=== PATIENT | female | born 1990 | race Caucasian/White ===

== ENCOUNTER 2019-02-12 12:08 | Emergency (ER) | payer OTHER ==
[~2019-02-12] VITALS: Wt 59.0 kg
[2019-02-12] MEDS ORDERED: KETOROLAC 60 MG INJ IM STA (12:22)
[2019-02-12] MEDS ORDERED: IBUP800T48 PO (12:29)
--- NOTE | 2019-02-12 12:34 | ERD ---
ER Documentation Chief Complaint Chief Complaint LEFT KNEE PAIN AND SWELLING WITH NO DEFORMITY ONSET YESTERDAY. HPI This is a 28-year-old female with a nonsignificant past medical history presents ED with left knee pain since yesterday. 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 Patient states that she heard a pop and then she started to feel pain. Patient admits to some difficulty ambulating but states that she is ambulating okay. Denies tingling, numbness, lack sensation, swelling and all other symptoms. ROS All systems reviewed and are negative except as per history of present illness. Medications Home Meds Active Scripts Ibuprofen* (Motrin*) 800 Mg Tab, 800 MG PO Q6, #30 TAB Prov:RADHA GAYTAN PA-C 02/12/19 PMhx/Soc Medical and Surgical Hx: pt denies Medical Hx, pt denies Surgical Hx Hx Alcohol Use: No Hx Substance Use: No Hx Tobacco Use: No Smoking Status: Never smoker FmHx Family History: No diabetes Physical Exam Vitals Vital Signs Date Temp Pulse Resp B/P (MAP) Pulse Ox O2 O2 Flow FiO2 Time Delivery Rate 02/12/19 98.5 86 20 129/82 99 12:11 (98) Physical Exam Physical Exam Vitals signs: Reviewed by me. General: Well developed, well nourished, in no acute distress. Patient is awake and alert. Head: Normocephalic, atraumatic. Eyes: Normal conjunctiva, Pupils PERRLA, EOM intact grossly MSK: No edema, no unilateral swelling, 5/5 strength Lower Extremity -left Skin: No laceration, swelling or evidence of external trauma Compartments: Soft Motor: Full active range of motion hip/knee/ankle/foot Sensation: Intact to light touch FDWS/MF/LF/P surfaces. Bones: Mild tenderness palpation along left lateral knee, nontender pelvis//proximal tibia/ malleoli/foot Joints: No effusion or laxity Pulses/Perfusion: 2+ DP, Capillary refill < 2 seconds Neurologic: Alert and oriented, moving all extremities, normal speech, no focal weakness, no cerebellar signs. Normal mentation Skin: warm and dry, No rash Psych: Normal mood Results 24 hrs Laboratory Tests Test 02/12/19 12:56 POC Beta HCG, Qualitative NEGATIVE Current Medications Medications Dose Sig/Jovi Start Time Status Last (Trade) Ordered Route PRN Stop Time Admin Dose Reason Admin Ketorolac 60 mg ONCE STAT 02/12/19 DC 02/12/19 Tromethamine IM 12:22 13:04 (Toradol) 02/12/19 12:24 17 gm ONCE ONCE 02/12/19 DC Polyethylene PO 13:30 Glycol 02/12/19 13:32 (Miralax) Procedures/MDM EKG, MONITORS, & DIAGNOSTIC IMAGING: [place] [id number] Radiology Main Line: [phone] DIAGNOSTIC IMAGING REPORT Patient: DARWIN GREGORY : 1990 Age: 28 Sex: F MR #: [id number] DOS: 02/12/19 1222 Ordering MD: RADHA GAYTAN PA-C Location: [facility] Room/Bed: PROCEDURE: XR Knee. CLINICAL INDICATION: Left knee pain TECHNIQUE: 4 images of the left knee are available for review. COMPARISON: None available FINDINGS: There is no acute fracture. Alignment is normal. Joint spaces are preserved. There is a small knee joint effusion. IMPRESSION: 1. No radiographic evidence of acute osseous abnormality. 2. Small knee joint effusion. RPTAT: UU .Chapin King MD, MD Date Time Electronically viewed and signed by .Chapin King MD, on 02/12/2019 13:37 .K/ CC: RADHA GAYTAN PA-C [phone] ER COURSE: The patient was given Toradol The medication was well tolerated and the patient reports improvement in symptoms. The patient was stable throughout ED course. I kept the patient and/or family informed of laboratory and diagnostic imaging results throughout the emergency room course. The patient was promptly evaluated and a treatment plan was devised based on H&P and other data. This plan was discussed with the patient who agreed and had no further questions or concerns prior to discharge. MEDICAL DECISION MAKIN-year-old female presents ED with left knee injury that occurred yesterday. X-rays show a small joint knee effusion but are otherwise unremarkable. I believe that this is likely a sprain. Patient was given crutches to aid with ambulation. Patient was advised to rice and she was also advised to follow-up with physician specialist to discuss possible advanced imaging such as MRI to rule out any ligamental injuries. History and physical examination other data not consistent with emergent processes including but not limited to fracture, dislocation, tendon rupture, ischemia, neurovascular injury, compartment syndrome, septic joint, avascular necrosis, osteomyelitis, necrotizing fasciitis, septic joint, septic arthritis, or other emergent conditions. Patient's vitals are stable and can be managed outpatient with close follow-up. Advised patient to follow-up with primary care in the next 48 hours. Return to ED with any worsening symptoms. DISPOSITION PLAN: We discussed follow up with the patient's primary care doctor within 24 to 48 hours. Patient counseled regarding my diagnostic impression and care plan. Prior to discharge all questions answered. Pt agrees with treatment plan and understands strict return precautions. Precautionary instructions provided including instructions to return to the ER if not improving or for any worsening or changing symptoms or concerns. SPECIALIST FOLLOW UP RECOMMENDED: ortho Patient has been advised to follow up with primary care in 1-2 days. Disclaimer: Inadvertent spelling and grammatical errors are likely due to EHR/dictation software use and do not reflect on the overall quality of patient care. Also, please note that the electronic time recorded on this note does not necessarily reflect the actual time of the patient encounter. Blood Pressure Assessment: Patient's blood pressure was elevated (>120/80) but appears stable without evidence of hypertension emergency or urgency. The patient was counseled about the risks of hypertension and urged to pursue outpatient monitoring and therapy within a week with their primary care hans luevano. Departure Diagnosis: Primary Impression: Knee pain Chronicity: acute Laterality: left Qualified Codes: M25.562 - Pain in left knee Additional Impression: Knee effusion, left Condition: Stable Patient Instructions: R.I.C.E., Knee Pain, Uncertain Cause, Knee Sprain Referrals: ANDREW RODRIGUEZ MD [facility] YOU HAVE RECEIVED A MEDICAL SCREENING EXAM AND THE RESULTS INDICATE THAT YOU DO NOT HAVE A CONDITION THAT REQUIRES URGENT TREATMENT IN THE EMERGENCY DEPARTMENT. FURTHER EVALUATION AND TREATMENT OF YOUR CONDITION CAN WAIT UNTIL YOU ARE SEEN IN YOUR DOCTORS OFFICE WITHIN THE NEXT 1-2 DAYS. IT IS YOUR RESPONSIBILITY TO MAKE AN APPOINTMENT FOR FOLOW-UP CARE. IF YOU HAVE A PRIMARY DOCTOR --you should call your primary doctor and schedule an appointment IF YOU DO NOT HAVE A PRIMARY DOCTOR YOU CAN CALL OUR PHYSICIAN REFERRAL HOTLINE AT IF YOU CAN NOT AFFORD TO SEE A PHYSICIAN YOU CAN CHOSE FROM THE FOLLOWING [facility] [address] [facility] [address] [facility] [address] [facility] [address] [facility] [address] [facility]. [facility] [address] Additional Instructions: Patient advised to return to the ED immediately for new or worsening symptoms. Patient advised to follow up with primary care provider in the next 24-48 hours. Patient verbalized understanding and agrees with treatment plan and course of action. If patient has no primary care they may follow up with one of the [facility] listed on the following page or one of the options listed below [facility] [address] [place] [id number] or [facility] [address] [place] [address] or [facility] [address] [place] [address] RADHA GAYTAN PA-C Feb 12, 2019 12:34
[2019-02-12] MEDS ORDERED: POLYETHYLENE GLYCOL 17 GM PACKET PO ONE (13:30)
== END 2019-02-12 14:01 | disposition home or self-care (01) ==
LOC: FTE 12:08
DX: M25.462 Effusion, left knee (principal)
CPT/HCPCS: 73564; 81025; 96372; J1885; Z7502